=== PATIENT | male | born 1970 | race Two or more races ===

== ENCOUNTER 2019-02-24 10:56 | Emergency (ER) | payer MEDICAID, OTHER ==
[~2019-02-24] VITALS: Ht 185.4 cm; Wt 147.4 kg
[2019-02-24 11:31] VITALS: BP 108/70
[2019-02-24] MEDS ORDERED: ACETAMINOPHEN/CODEINE#3 (300/30mg) TAB PO ONE (16:15)
== END 2019-02-24 18:26 | disposition home or self-care (01) ==
LOC: ER 10:56
DX: S70.12XA Contusion of left thigh, initial encounter (principal); E11.9 Type 2 diabetes mellitus without complications; I10 Essential (primary) hypertension; X58.XXXA Exposure to other specified factors, initial encounter; Y93.89 Activity, other specified; Y92.89 Other specified places as the place of occurrence of the external cause; Y99.8 Other external cause status
CPT/HCPCS: 73700